=== PATIENT | male | born 1965 | race Caucasian/White ===

== ENCOUNTER 2016-11-25 15:50 | Outpatient (CLI) | payer OTHER | END 2016-11-25 15:51 | disposition home or self-care (01) | DX: R14.0 Abdominal distension (gaseous) (principal) ==

== ENCOUNTER 2017-04-06 15:00 | Outpatient (CLI) | payer OTHER ==
--- NOTE | 2017-04-07 08:52 | XRAY Report ---
CHEST, PA AND LATERAL: 04/06/2017 CLINICAL HISTORY: The patient is a smoker. COMPARISON: 03/12/2009 FINDINGS: Bony thorax demonstrates minimal anterior spurring in the thoracic spine. Heart and great vessels are normal. Mediastinum is not widened. Pulmonary parenchyma demonstrates minimal peribron chial thickening in the left lower lobe, unchanged as compared to preceding exam. Findings most like ly are a result of mild chronic bronchitis. IMPRESSION: MILD CHANGES OF CHRONIC BRONCHITIS ARE NOTED ONCE AGAIN IN THE LEFT LOWER LOBE, UNCHANGE D COMPARED TO 03/16/2009. JOB #: [id number] [id number] JOB #:[id number]
== END 2017-04-06 15:01 | disposition home or self-care (01) ==
LOC: DI 15:00
PROVIDERS: ATTEND Family Medicine
DX: J42 Unspecified chronic bronchitis (principal)
CPT/HCPCS: 71020

== ENCOUNTER 2017-12-29 08:00 | Outpatient (CLI) | payer OTHER | END 2017-12-29 08:01 | disposition home or self-care (01) | LOC: LAB.WCP 08:00 | PROVIDERS: ATTEND Family Medicine | DX: Z12.5 Encounter for screening for malignant neoplasm of prostate (principal) | CPT/HCPCS: 36415; 84153 ==

== ENCOUNTER 2020-09-06 13:46 | Outpatient (CLI) | payer OTHER | END 2020-09-06 13:47 | disposition home or self-care (01) | LOC: COV 13:46 | PROVIDERS: ATTEND Family Medicine | DX: R05 Cough (principal); R09.81 Nasal congestion; M79.10 Myalgia, unspecified site; J02.9 Acute pharyngitis, unspecified; Z20.828 Contact with and (suspected) exposure to other viral communicable diseases ==